=== PATIENT | male | born 1995 | race Caucasian/White ===

== ENCOUNTER 2016-11-08 05:02 | Emergency (ER) | payer OTHER ==
[~2016-11-08] VITALS: Ht 185.4 cm; Wt 84.6 kg
[2016-11-08 05:07] VITALS: TEMP 37.1; Ht 185.4 cm; Wt 84.6 kg
[2016-11-08 05:29] LABS: BASO % 0.2 %; BASO ABS # 0.02 K/uL (0-0.2); COMPLETE YES; EOS % 0.6 %; HEMATOCRIT 46.4 % (42-52); IG% 0.1 %; LYMPH % 22.2 %; LYMPH ABS # 2.07 K/uL (1.2-3.4); MEAN CELL VOLUME 83.2 fL (80-100); MEAN CORPUSCULAR HEMOGLOBIN 28.5 pg (25-34); MEAN CORPUSCULAR HGB CONC 34.3 g/dl (32-36); MEAN PLATELET VOLUME 9.7 fL (7.4-10.4); MONO % 7.8 %; NEUT % 69.1 %; PLATELET COUNT 377 K/uL (130-400); RED BLOOD COUNT 5.58 M/uL (4.7-6.1); WHITE BLOOD COUNT 9.33 K/uL (4.8-10.8)
[2016-11-08 06:03] LABS: POTASSIUM 4.5 mmol/L (3.5-5.1)
[2016-11-08 06:04] LABS: AST/SGOT 45 U/L (15-37)
[2016-11-08 06:05] LABS: ALKALINE PHOSPHATASE 79 U/L (45-117); ALT/SGPT 79 U/L (12-78); BLOOD UREA NITROGEN 18 mg/dl (7-18); BUN/CREATININE RATIO 13.1 (10-20); CALCIUM 9.1 mg/dl (8.5-10.1); CARBON DIOXIDE 30 mmol/L (21-32); CHLORIDE 103 mmol/L (98-107); GLUCOSE 105 mg/dl (70-99); SODIUM 139 mmol/L (136-145)
--- NOTE | 2016-11-08 06:07 | DIAGNOSTIC IMAGING REPORT ---
CHEST ONE VIEW PORTABLE CLINICAL HISTORY: chest pain dyspnea COMPARISON STUDY: No previous studies for comparison. FINDINGS: The bones soft tissues and hemidiaphragms are normal. The cardiomediastinal silhouette is normal. The lungs are clear. The pulmonary vasculature is normal. IMPRESSION: Negative chest. Electronically signed by: Devonte Lopez M.D. 11/08/2016 6:06 AM Dictated Date/Time: 11/08/2016 6:06 AM
--- NOTE | 2016-11-08 06:18 | EMERGENCY ROOM VISIT NOTE ---
History First contact with patient: 05:11 Chief Complaint: CHEST PAIN Stated Complaint: CHEST PRESSURE,SHOULDER PAIN Nursing Triage Summary: Pt reports that he took ecstacy 3 days ago and has been having intermittent chest pain rated 5/10. Pt also reports that he takes adderall as prescribed and drinks 300mg caffeine daily. Pt also complaints of feeling of "pinched nerve" in left arm and left leg numbness when drinking caffeine. History of Present Illness The patient is a 21 year old male who presents to the Emergency Room with complaints of multiple symptoms. The patient reports that over the past 3 days , he has had a few episodes of chest pain which lasts 30 seconds each time. He also reports that when he drinks large amounts of caffeine, his left leg feels weak and numb. He states that an artery in his left arm feels pinched. He reports there is no numbness or weakness of the arm, and he does not know how to describe the pinching sensation. He does state that he took ecstasy 3 days ago prior to the onset of symptoms. He denies any recent EtOH use. He takes Adderall daily and states this is prescribed to him. He denies any cardiac history. He denies any shortness of breath, nausea, vomiting, abdominal pain, headache or neck pain. Review of Systems A complete 10-point Review of Systems was discussed with the patient, with pertinent positives and negatives listed in the History of Present Illness. All remaining Review of Systems questions can be considered negative unless otherwise specified. Past Medical/Surgical History Medical Problems: (1) No active medical problems Family History Cancer FH: heart disease Social History Smoking Status: Never Smoker Marital Status: single Occupation Status: student Current/Historical Medications Scheduled Amphetamine-Dextroamphetamine 30MG (Adderall Xr 30MG), 30 MG PO DAILY Ropinirole (Requip), 2 MG PO HS Allergies Coded Allergies: No Known Allergies (Unverified , 11/08/16) Physical Exam Vital Signs Date Time Temp Pulse Resp B/P Pulse Ox O2 Delivery O2 Flow Rate FiO2 11/08/16 06:23 91 22 147/71 96 11/08/16 05:22 97 11/08/16 05:15 98 Room Air 11/08/16 05:07 37.1 87 20 158/78 99 Room Air Physical Exam VITALS: Vitals are noted on the nurse's note and reviewed by myself. Vital signs stable. GENERAL: This is a 21-year-old male, in no acute distress, nondiaphoretic, well- developed well-nourished. SKIN: Capillary reflex less than 2 seconds. HEENT: Normocephalic. PERRLA. EOMI. Nares patent. Mucous membranes moist. Neck is supple without nuchal rigidity. HEART: Regular rate and rhythm without murmurs gallops or rubs. LUNGS: Clear to auscultation bilaterally without wheezes, rales or rhonchi. ABDOMEN: Positive bowel sounds x 4. Soft, nontender, without masses or organomegaly. MUSCULOSKELETAL: Full range of motion of all extremities. Strength 5/5 throughout. NEURO: Patient was alert and oriented to person place and time. Normal sensation to light and sharp touch. Deep tendon reflexes 2+ throughout. No focal neurological deficits. Medical Decision & Procedures ER Provider Diagnostic Interpretation: CHEST ONE VIEW PORTABLE CLINICAL HISTORY: chest pain dyspnea COMPARISON STUDY: No previous studies for comparison. FINDINGS: The bones soft tissues and hemidiaphragms are normal. The cardiomediastinal silhouette is normal. The lungs are clear. The pulmonary vasculature is normal. IMPRESSION: Negative chest. Laboratory Results 11/08/16 05:20 Red Blood Count 5.58, Mean Corpuscular Volume 83.2, Mean Corpuscular Hemoglobin 28.5, Mean Corpuscular Hemoglobin Concent 34.3, Mean Platelet Volume 9.7, Neutrophils (%) (Auto) 69.1, Lymphocytes (%) (Auto) 22.2, Monocytes (%) (Auto) 7.8, Eosinophils (%) (Auto) 0.6, Basophils (%) (Auto) 0.2, Neutrophils # (Auto) 6.44, Lymphocytes # (Auto) 2.07, Monocytes # (Auto) 0.73, Eosinophils # (Auto) 0.06, Basophils # (Auto) 0.02 11/08/16 05:20 Test 11/08/16 05:20 White Blood Count 9.33 K/uL (4.8-10.8) Red Blood Count 5.58 M/uL (4.7-6.1) Hemoglobin 15.9 g/dL (14.0-18.0) Hematocrit 46.4 % (42-52) Mean Corpuscular Volume 83.2 fL (80-100) Mean Corpuscular Hemoglobin 28.5 pg (25-34) Mean Corpuscular Hemoglobin Concent 34.3 g/dl (32-36) Platelet Count 377 K/uL (130-400) Mean Platelet Volume 9.7 fL (7.4-10.4) Neutrophils (%) (Auto) 69.1 % Lymphocytes (%) (Auto) 22.2 % Monocytes (%) (Auto) 7.8 % Eosinophils (%) (Auto) 0.6 % Basophils (%) (Auto) 0.2 % Neutrophils # (Auto) 6.44 K/uL (1.4-6.5) Lymphocytes # (Auto) 2.07 K/uL (1.2-3.4) Monocytes # (Auto) 0.73 K/uL (0.11-0.59) Eosinophils # (Auto) 0.06 K/uL (0-0.5) Basophils # (Auto) 0.02 K/uL (0-0.2) RDW Standard Deviation 46.3 fL (36.4-46.3) RDW Coefficient of Variation 15.3 % (11.5-14.5) Immature Granulocyte % (Auto) 0.1 % Immature Granulocyte # (Auto) 0.01 K/uL (0.00-0.02) Anion Gap 6.0 mmol/L (3-11) Est Creatinine Clear Calc Drug Dose 95.1 ml/min Estimated GFR () 83.2 Estimated GFR (Non- 71.8 BUN/Creatinine Ratio 13.1 (10-20) Calcium Level 9.1 mg/dl (8.5-10.1) Total Bilirubin 0.8 mg/dl (0.2-1) Aspartate Amino Transf (AST/SGOT) 45 U/L (15-37) Alanine Aminotransferase (ALT/SGPT) 79 U/L (12-78) Alkaline Phosphatase 79 U/L (45-117) Troponin I < 0.015 ng/ml (0-0.045) Total Protein 7.9 gm/dl (6.4-8.2) Albumin 4.0 gm/dl (3.4-5.0) Globulin 3.9 gm/dl (2.5-4.0) Albumin/Globulin Ratio 1.0 (0.9-2) Thyroid Stimulating Hormone (TSH) 4.110 uIu/ml (0.300-4.500) ECG Indication: chest pain Rate (beats per minute): 85 Rhythm: normal sinus Findings: no acute ischemic change, no ectopy Comparison ECG Date: no prior available Medical Decision Differential diagnosis includes acute coronary syndrome, pulmonary embolism, pneumothorax, pericarditis, myocarditis, endocarditis, anxiety, musculoskeletal pain, GERD, costochondritis, among others. The patient was evaluated as above. Labs were drawn and IV access was obtained. Imaging studies were performed and read by radiology as above. The patient was reassessed multiple times during their stay in the emergency department and remained in stable condition. The patient is a 21-year-old male who presents today complaining of chest pain and intermittent numbness of his left leg. Labs revealed no leukocytosis, anemia or concerning electrolyte abnormalities. Troponin was not elevated. EKG was interpreted by myself and showed a normal sinus rhythm without evidence of ischemia or ectopy. Chest x-ray was read by myself and was unremarkable. I feel his symptoms are likely secondary to anxiety. He was reassured and encouraged to follow-up with [facility] for further evaluation. Based on the patient's presentation, lab results, and imaging studies, I feel the patient is stable for outpatient treatment. Discharge instructions were reviewed with the patient. The patient verbalized understanding of my assessment and treatment plan and was discharged home in good condition. Impression Primary Impression: Non-cardiac chest pain Departure Information Dispostion Home / Self-Care Condition GOOD Referrals No Doctor, Assigned (PCP) Patient Instructions My [facility] Additional Instructions You have been treated in the Emergency Department for your Non-Cardiac Chest Pain. Laboratory results and Imaging Studies have ruled out any cardiac or pulmonary cause of your chest pain. For pain control, you can use the following [id number] medicines (if >12 yo): - Regular strength (325mg/tab) Tylenol (acetaminophen) 2 tabs every 4-6 hours as needed. Do not exceed 12 tablets in a 24 hour period. Avoid taking more than 4 grams (4000 mg) of Tylenol per day. This includes any other sources of acetaminophen you may take on a regular basis. - Regular strength (200 mg/tab) Advil (ibuprofen) 1-2 tabs every 4-6 hours as needed. Do not exceed a dose of 3200 mg per day. You should schedule a follow-up appointment with your Primary Care Provider in 2 -3 days for further evaluation from today's Emergency Department visit. Return to the Emergency Department if your current symptoms worsen despite treatment course outlined above, or if you develop any of the following symptoms : worsening chest pain, associated jaw/arm pain, nausea, dizziness, shortness of breath, bloody cough, or fainting.
[2016-11-08 06:23] VITALS: BP 147/71; PULSE 91; O2SAT 96
[2016-12-02] MEDS ORDERED: AMPH30CA3 PO (06:28)
[2016-12-02] MEDS ORDERED: ROPI2TAB6 PO (06:28)
== END 2016-11-08 06:23 | disposition home or self-care (01) ==
LOC: C.EDB 05:03
DX: R07.89 Other chest pain (principal); Z79.899 Other long term (current) drug therapy

== ENCOUNTER 2016-12-02 19:28 | Emergency (ER) | payer OTHER ==
[~2016-12-02] VITALS: Ht 182.9 cm; Wt 88.9 kg
[~2016-12-02 19:28] MED LIST: AMPH30CA3 PO; ROPI2TAB6 PO
[2016-12-02 19:32] VITALS: Ht 182.9 cm; Wt 88.9 kg
[2016-12-02 21:00] LABS: BASO % 0.3 %; BASO ABS # 0.03 K/uL (0-0.2); COMPLETE YES; EOS % 0.5 %; HEMATOCRIT 46.3 % (42-52); IG% 0.1 %; LYMPH % 16.2 %; MEAN CELL VOLUME 82.8 fL (80-100); MEAN CORPUSCULAR HEMOGLOBIN 28.4 pg (25-34); MEAN CORPUSCULAR HGB CONC 34.3 g/dl (32-36); MEAN PLATELET VOLUME 10.3 fL (7.4-10.4); MONO % 6.7 %; NEUT % 76.2 %; PLATELET COUNT 373 K/uL (130-400); RED BLOOD COUNT 5.59 M/uL (4.7-6.1); WHITE BLOOD COUNT 9.85 K/uL (4.8-10.8)
[2016-12-02 21:08] LABS: BUN/CREATININE RATIO 7.3 (10-20); CREATININE 1.2 mg/dl (0.60-1.40)
[2016-12-02 21:15] LABS: ALB/GLOB RATIO 0.9 (0.9-2)
--- NOTE | 2016-12-02 21:34 | EMERGENCY ROOM VISIT NOTE ---
History Report prepared by Courtney: Shantanu Thompson Under the Supervision of: Dr. Bruce Woods D.O. First contact with patient: 21:22 Chief Complaint: NEURO SYMPTOMS Stated Complaint: LEFT SIDE WEAKNESS, LETHARGIC, FATIGUE, HEADACHE Nursing Triage Summary: pt reports that L side of body feels more weak than the R these sx have been intermittent X 2 weeks , pt states " when I lift both arms the blood drains out of both extremities , and I feel like I can't support my wt" pt ambualated to triage withuot difficulty , speech clear and appropriate pt then reports " I was here last week because I thought I was having a heart attack, and everthing checked out ok" History of Present Illness The patient is a 21 year old male who presents to the Emergency Room with complaints of persistent weakness for the past two weeks. The patient complains of worsening left leg and arm weakness. He notes that he experiences numbness in his left side sometimes when he takes his Adderall; however, these symptoms have worsened over the past two weeks. The patient notes that his shoulders have felt "uneven" for the past year, but his left arm has drooped more in the past two weeks. He also complains of a headache in the back of his head that started four days ago and feeling more lethargic than normal. Source of History: patient Onset: past two weeks Position: other (global) Timing: worsening, other Associated Symptoms: + fatigue (feeling lethargic), + headache, + weakness ( left arm and leg) Note: Other associated symptoms: shoulders feeling 'uneven', left shoulder drooping. Review of Systems See HPI for pertinent positives & negatives. A total of 10 systems reviewed and were otherwise negative. Past Medical & Surgical Medical Problems: (1) No active medical problems Family History Cancer FH: heart disease Social History Smoking Status: Never Smoker Marital Status: single Occupation Status: student Current/Historical Medications Scheduled Amphetamine-Dextroamphetamine 30MG (Adderall Xr 30MG), 30 MG PO DAILY Ropinirole (Requip), 2 MG PO HS Allergies Coded Allergies: No Known Allergies (Unverified , 11/08/16) Physical Exam Vital Signs Date Time Temp Pulse Resp B/P Pulse Ox O2 Delivery O2 Flow Rate FiO2 12/02/16 23:17 37.0 98 18 120/72 98 12/02/16 22:06 97 18 125/58 97 Room Air 12/02/16 20:38 106 18 143/77 97 Room Air 12/02/16 20:08 104 12/02/16 19:32 37.0 110 20 145/90 98 Room Air Physical Exam GENERAL: Patient is awake alert in no acute distress patient is resting comfortably and showing no signs of anxiety EYES: The conjunctivae are clear. The pupils are round and reactive. EARS, NOSE, MOUTH AND THROAT: The nose is without any evidence of any deformity. Mucous membranes are moist tongue is midline NECK: The neck is nontender and supple. RESPIRATORY: Normal respiratory effort is noted there is no evidence of wheezing rhonchi or rales CARDIOVASCULAR: Regular rate and rhythm noted there no murmurs rubs or gallops normal S1 normal S2 GASTROINTESTINAL: The abdomen is soft. Bowel sounds are present in all quadrants. Abdomen is nontender MUSCULOSKELETAL/EXTREMITIES: There is no evidence of gross deformity full range of motion is noted in the hips and shoulders SKIN: There is no obvious evidence of any rash. There are no petechiae, pallor or cyanosis noted. NEUROLOGIC: Patient is awake alert and oriented x3 strength is symmetric patellar reflexes are 2+ bilaterally Medical Decision & Procedures ER Provider Diagnostic Interpretation: Radiology results as stated below per my review and radiologist interpretation: CT OF THE HEAD WITHOUT CONTRAST CLINICAL HISTORY: Left-sided weakness. Fatigue. Headache. COMPARISON STUDY: No previous studies for comparison. CT DOSE: 537.48 mGy.cm TECHNIQUE: Helical axial images of the head were obtained without IV contrast. Automated exposure control was utilized for the study. FINDINGS: No acute intracranial hemorrhage, midline shift or mass effect is present. Ventricular system is normal. Basilar cisterns are patent. There are no extra-axial collections. Chan-white differentiation is maintained. There are no findings to suggest acute dural sinus thrombosis or acute territorial infarct. Visualized portions of the sinuses and mastoid air cells are clear. There are no calvarial abnormalities. IMPRESSION: No acute intracranial findings. Electronically signed by: Federico Kilpatrick M.D. 12/02/2016 10:22 PM Dictated Date/Time: 12/02/2016 10:20 PM CHEST ONE VIEW PORTABLE CLINICAL HISTORY: Weakness. COMPARISON STUDY: Chest radiograph November 13, 2016 FINDINGS: Lung volumes are normal. No consolidation is identified. Cardiac size is normal. Mediastinal contours are normal. There is no evidence of pulmonary edema. IMPRESSION: No acute cardiopulmonary findings. Electronically signed by: Federico Kilpatrick M.D. 12/02/2016 9:41 PM Dictated Date/Time: 12/02/2016 9:41 PM Laboratory Results 12/02/16 20:30 Red Blood Count 5.59, Mean Corpuscular Volume 82.8, Mean Corpuscular Hemoglobin 28.4, Mean Corpuscular Hemoglobin Concent 34.3, Mean Platelet Volume 10.3, Neutrophils (%) (Auto) 76.2, Lymphocytes (%) (Auto) 16.2, Monocytes (%) (Auto) 6.7, Eosinophils (%) (Auto) 0.5, Basophils (%) (Auto) 0.3, Neutrophils # (Auto) 7.50, Lymphocytes # (Auto) 1.60, Monocytes # (Auto) 0.66, Eosinophils # (Auto) 0.05, Basophils # (Auto) 0.03 12/02/16 20:30 Test 12/02/16 20:30 White Blood Count 9.85 K/uL (4.8-10.8) Red Blood Count 5.59 M/uL (4.7-6.1) Hemoglobin 15.9 g/dL (14.0-18.0) Hematocrit 46.3 % (42-52) Mean Corpuscular Volume 82.8 fL (80-100) Mean Corpuscular Hemoglobin 28.4 pg (25-34) Mean Corpuscular Hemoglobin Concent 34.3 g/dl (32-36) Platelet Count 373 K/uL (130-400) Mean Platelet Volume 10.3 fL (7.4-10.4) Neutrophils (%) (Auto) 76.2 % Lymphocytes (%) (Auto) 16.2 % Monocytes (%) (Auto) 6.7 % Eosinophils (%) (Auto) 0.5 % Basophils (%) (Auto) 0.3 % Neutrophils # (Auto) 7.50 K/uL (1.4-6.5) Lymphocytes # (Auto) 1.60 K/uL (1.2-3.4) Monocytes # (Auto) 0.66 K/uL (0.11-0.59) Eosinophils # (Auto) 0.05 K/uL (0-0.5) Basophils # (Auto) 0.03 K/uL (0-0.2) RDW Standard Deviation 48.2 fL (36.4-46.3) RDW Coefficient of Variation 16.0 % (11.5-14.5) Immature Granulocyte % (Auto) 0.1 % Immature Granulocyte # (Auto) 0.01 K/uL (0.00-0.02) Anion Gap 6.0 mmol/L (3-11) Est Creatinine Clear Calc Drug Dose 107.8 ml/min Estimated GFR () 100.3 Estimated GFR (Non- 86.5 BUN/Creatinine Ratio 7.3 (10-20) Calcium Level 10.0 mg/dl (8.5-10.1) Total Bilirubin 0.5 mg/dl (0.2-1) Aspartate Amino Transf (AST/SGOT) 38 U/L (15-37) Alanine Aminotransferase (ALT/SGPT) 131 U/L (12-78) Alkaline Phosphatase 68 U/L (45-117) Total Protein 7.7 gm/dl (6.4-8.2) Albumin 3.7 gm/dl (3.4-5.0) Globulin 4.0 gm/dl (2.5-4.0) Albumin/Globulin Ratio 0.9 (0.9-2) Laboratory results per my review. ECG Indication: weakness Rate (beats per minute): 97 Rhythm: normal sinus Findings: no ectopy, other (no acute ST segment abnormality) Change: no significant change (when compared to November 08, 2015) ED Course 2122: The patient was evaluated in room B2. A complete history and physical examination were performed. Medical Decision Differential diagnosis: Etiologies such as metabolic, infection, hypo/hyperglycemia, electrolyte abnormalities, cardiac sources, intracerebral event, toxicologic, neurologic, as well as others were entertained. Nursing notes reviewed. The patient is a 21-year-old male who presented to the emergency department for neurologic complaints at a been ongoing for multiple months. On physical exam the patient did not have any focal neurologic deficit. I discussed the patient' s laboratory and radiographic studies with him. He was observed in the emergency department for a period of time. The patient was encouraged to rest and avoid any strenuous activity. He was also encouraged return to the emergency department immediately if symptoms change worsen or the need arises. Otherwise she was encouraged to follow-up with his primary care physician as soon as possible for further evaluation as well as possible MRI the brain and referral to neurology if symptoms do not improve. Impression Primary Impression: Weakness Scribe Attestation The scribe's documentation has been prepared under my direction and personally reviewed by me in its entirety. I confirm that the note above accurately reflects all work, treatment, procedures, and medical decision making performed by me. Departure Information Dispostion Home / Self-Care Referrals No Doctor, Assigned (PCP) Forms HOME CARE DOCUMENTATION FORM, IMPORTANT VISIT INFORMATION, WORK / SCHOOL INSTRUCTIONS Patient Instructions ED Weakness DEBBIE, My [facility] Additional Instructions Continue all medications as prescribed. Rest and avoid any strenuous activity. Follow-up with your family this week for reevaluation. You may require further studies such as an MRI the brain or a referral to a neurologist to further evaluate causing of your symptoms.
--- NOTE | 2016-12-02 21:43 | DIAGNOSTIC IMAGING REPORT ---
CHEST ONE VIEW PORTABLE CLINICAL HISTORY: Weakness. COMPARISON STUDY: Chest radiograph November 13, 2016 FINDINGS: Lung volumes are normal. No consolidation is identified. Cardiac size is normal. Mediastinal contours are normal. There is no evidence of pulmonary edema. IMPRESSION: No acute cardiopulmonary findings. Electronically signed by: Federico Kilpatrick M.D. 12/02/2016 9:41 PM Dictated Date/Time: 12/02/2016 9:41 PM
--- NOTE | 2016-12-02 22:24 | DIAGNOSTIC IMAGING REPORT ---
CT OF THE HEAD WITHOUT CONTRAST CLINICAL HISTORY: Left-sided weakness. Fatigue. Headache. COMPARISON STUDY: No previous studies for comparison. CT DOSE: 537.48 mGy.cm TECHNIQUE: Helical axial images of the head were obtained without IV contrast. Automated exposure control was utilized for the study. FINDINGS: No acute intracranial hemorrhage, midline shift or mass effect is present. Ventricular system is normal. Basilar cisterns are patent. There are no extra-axial collections. Chan-white differentiation is maintained. There are no findings to suggest acute dural sinus thrombosis or acute territorial infarct. Visualized portions of the sinuses and mastoid air cells are clear. There are no calvarial abnormalities. IMPRESSION: No acute intracranial findings. Electronically signed by: Federico Kilpatrick M.D. 12/02/2016 10:22 PM Dictated Date/Time: 12/02/2016 10:20 PM
[2016-12-02 23:17] VITALS: BP 120/72; PULSE 98; TEMP 37; O2SAT 98
== END 2016-12-02 23:18 | disposition home or self-care (01) ==
LOC: C.EDB 19:29
DX: R53.1 Weakness (principal)

== ENCOUNTER → 2017-03-01 | Outpatient (CLI) | payer OTHER ==
[~2017-03-01] MED LIST changes: +GADAVIST IV PRN
--- NOTE | 2017-03-01 11:00 | DIAGNOSTIC IMAGING REPORT ---
MRI brain/pituitary BRAIN COMBO FOR PITUITARY CLINICAL HISTORY: Elevated prolactin level. TECHNIQUE: Multiaxial MRI acquisition. 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 Remainder the pituitary is uniform in appearance. Pituitary stock and optic asthma unremarkable. Signal characteristics of the cerebellar as well as cerebral hemispheres are unremarkable. There is no deviation of midline structures. 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 Electronically signed by: Devonte Lopez M.D. 03/01/2017 10:59 AM Dictated Date/Time: 03/01/2017 10:54 AM
== END | disposition home or self-care (01) ==
LOC: C.MRI 09:03
PROVIDERS: ATTEND Internal Medicine
DX: E22.9 Hyperfunction of pituitary gland, unspecified (principal); N62 Hypertrophy of breast; N64.52 Nipple discharge